=== PATIENT | male | born 1965 | race Caucasian/White ===

== ENCOUNTER → 2022-11-17 10:38 | Outpatient (CLI) | payer BC, SELFPAY ==
--- NOTE | ~2022-11-17 | CT_ITS ---
CT Scan of the Chest without Contrast: Clinical Indication: Lung cancer screening, personal history of nicotine dependence Technique: Contiguous sections were acquired throughout the chest without intravenous contrast. Dose reduction technique was used on this scan by utilizing automated exposure control and iterative recon struction technique. The dose-length product (DLP) was 101.93 mGy-cm. Findings: There is no evidence of any significant mediastinal, hilar or axillary lymphadenopathy. Coronary michael ry calcifications are present. There is no evidence of pleural or pericardial effusion. The lungs are clear. No pulmonary nodules or infiltrates are noted. Images through the upper abdomen reveal no abnormalities. Impression: Lung RADS 1: Negative. 12 month follow-up screening CT advised. Reviewed, dictated and finalized at location . Impression: Lung RADS 1: Negative. 12 month follow-up screening CT advised.
== END ==
PROVIDERS: PCP Nurse Practitioner Family; Visit Provider Nurse Practitioner Family
DX: Z12.2 Encounter for screening for malignant neoplasm of respiratory organs (principal); Z87.891 Personal history of nicotine dependence
CPT/HCPCS: 71271

== ENCOUNTER 2023-09-27 11:22 | Emergency (ER) | payer BC, SELFPAY ==
--- NOTE | ~2023-09-27 | XR_ITS ---
EXAMINATION: XR knee RT 3V DATE: 09/27/2023 11:51 INDICATION: Right knee pain. TECHNIQUE: 3 views of right knee were obtained. COMPARISON: None. FINDINGS: Bone alignment is normal. No fracture. There is mild tricompartmental osteoarthritis. No kn ee joint effusion. IMPRESSION: 1. Mild right knee osteoarthritis. Reviewed, dictated and finalized at location A.
[2023-09-27 11:34] VITALS: BP 154/92; PULSE 104; RESP 16; TEMP 36.4; O2SAT 99
--- NOTE | 2023-09-27 11:40 | ED.LOWEXIN ---
HPI - Extremity Injury (Lower) General Chief Complaint: Extremity Injury, Lower Stated Complaint: Right Knee Pain Time Seen by Provider: 09/27/23 11:40 Source: patient Mode of arrival: ambulatory Limitations: no limitations History of Present Illness HPI Narrative: Sy is a 58-year-old male patient presenting to the clinic today with complaints of right knee pain this been going on for 2-3 months. He denies any injury to the right knee. Rates his pain at 10 and 10 currently. Does have mild swelling when compared to the left knee. Reports that the knee hurts all over. No redness or erythema. No history of gout Related Data Allergies Allergy/AdvReac Type Severity Reaction Status Date / Time No Known Allergies Verified 10/17/09 12:30 Review of Systems Review of Systems: Pertinent positives per HPI. Patient denies any fever, chills, rash, headache, visual changes, dizziness, cough, runny nose, sore throat, shortness of breath, chest pain, palpitations, nausea, vomiting, diarrhea, constipation, abdominal pain, or any urinary issues. [facility] Family History Family History Mother Rheumatoid arthritis Grandparent Rheumatoid arthritis Social History Social History Social History: quit smoking in 2019, 30 years in total about 1ppd Smoking status: Former smoker Comments At the time of my signature, I reviewed and agree with the nursing past medical, surgical, social, and family history. There is no relevant family history pertinent to the patient complaint. Exam Narrative: General: Well-developed, well nourished, in no apparent distress Head: Normocephalic, atraumatic. Cardio: Regular rate and rhythm, s1 and s2 normal, no murmur appreciated. Resp: Clear to auscultation bilaterally, no rhonchi, rales, wheezing or rubs. Musculoskeletal: No deformity, tender to palpation over the entire knee joint but mostly over the medial knee joint, pain with full flexion and full extension of the knee, no crepitus palpable, grossly normal range of motion, muscle strength strong and equal, peripheral pulse strong, no edema, no cyanosis, normal gait and station Course Course Emergency Course: Portions of this record may have been created with voice recognition software. Level of Care: Express Care Visit Vital Signs Vital signs: Vital Signs Temperature 36.4 C L 09/27/23 11:34 Pulse Rate 104 H 09/27/23 11:34 Respiratory Rate 16 09/27/23 11:34 Blood Pressure 154/92 H 09/27/23 11:34 Pulse Oximetry 99 09/27/23 11:34 Oxygen Delivery Room Air 09/27/23 11:34 Temperature 36.4 C L 09/27/23 11:34 Pulse Rate 104 H 09/27/23 11:34 Respiratory Rate 16 09/27/23 11:34 Blood Pressure 154/92 H 09/27/23 11:34 Pulse Oximetry 99 09/27/23 11:34 Oxygen Delivery Room Air 09/27/23 11:34 Vital signs reviewed MDM - Extremity Injury (Lower) MDM Narrative Medical decision making narrative: At the time of visit patient is resting comfortably on the exam table. Patient appears to be nontoxic. Diagnostics: Right knee x-ray was performed and shows mild osteoarthritis. Plan: I suspect patient has osteoarthritis of the right knee. Prescription for Medrol Dosepak was sent to the pharmacy. Supportive measures were discussed with the patient and they voiced understanding discharge instructions and agrees to treatment plan. Return precautions reviewed Differential Diagnosis Differential diagnosis: Likely acute internal derangement of knee and other (Osteoarthritis, rheumatoid arthritis, gout) Imaging Data Radiologist's impression: ITS Impressions Knee X-Ray 09/27/23 12:26 IMPRESSION: 1. Mild right knee osteoarthritis. Discharge Plan Discharge Clinical Impression: Knee osteoarthritis Qualifiers: Osteoarthritis type: primary Laterality: right Qualified Code(s
== END 2023-09-27 12:40 | disposition home or self-care (01) ==
PROVIDERS: Emergency Provider Nurse Practitioner Family; PCP Nurse Practitioner Family
DX: M17.11 Unilateral primary osteoarthritis, right knee (principal); Z87.891 Personal history of nicotine dependence
CPT/HCPCS: 73562; 99213; G0463

== ENCOUNTER 2025-04-29 16:02 | Emergency (ER) | payer BC, SELFPAY ==
--- NOTE | ~2025-04-29 | US_ITS ---
US venous doppler LE LT INDICATION: Left lower extremity pain and swelling. COMPARISON: None. TECHNIQUE: The deep veins of the left lower extremity were evaluated with Duplex Doppler, color Doppler, and high-resolution B-mode sonography. Evaluated veins include the common femoral, femoral, and popliteal veins. The calf veins were also evaluated. Compression and augmentation maneuvers were performed. FINDINGS: The deep veins of the left lower extremity were compressible and demonstrated spontaneous phasic waveforms with an appropriate response to augmentation maneuvers. The visualized calf veins were patent. Complex area in the posterior knee measures 2.7 x 5.7 x 1.7 cm. IMPRESSION: There was no sonographic evidence of deep vein thrombosis in the left lower extremity. Complex area in the posterior knee measures 2.7 x 5.7 x 1.7 cm. Reviewed, dictated and finalized at location S. [facility] BOTANY INSTRUCTOR IMPRESSION: There was no sonographic evidence of deep vein thrombosis in the left lower ext remity. Complex area in the posterior knee measures 2.7 x 5.7 x 1.7 cm.
--- NOTE | ~2025-04-29 | XR_ITS ---
XR knee LT min 4V INDICATION: left knee pain . COMPARISON: None. FINDINGS: Frontal, lateral and oblique views of the left knee demonstrate no acute fracture or dislocation. There is no joint effusion. Degenerative changes with joint space narrowing and marginal osteophytes. IMPRESSION: Radiographic examination of the left knee demonstrates no acute fracture or dislocation. Reviewed, dictated and finalized at location S. [employer] IMPRESSION: Radiographic examination of the left knee demonstrates no acute fracture or dis location.
--- OUTSIDE RECORDS SUMMARY | 2025-04-29 16:04 | XMS_ITS | Clinical Summary ---
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 Gender Identity Not on file Sexual Orientation Not on file Last Filed Vital Signs Vital Sign Reading Time Taken Comments Blood Pressure - - Pulse - - Temperature - - Respiratory Rate - - Oxygen Saturation - - Inhaled Oxygen Concentration - - Weight 88.5 kg (195 lb) 12/31/2024 3:17 PM CDT Height 182.9 cm (6') 12/31/2024 3:17 PM CDT Body Mass Index 26.45 12/31/2024 3:17 PM CDT Plan of Treatment Health Maintenance Due Date Last Done Comments Colon Cancer Screening-Colonoscopy 1967 Depression Screening 1967 Hepatitis C Screening 1967 Prostate Cancer Screening-PSA 1967 DTaP/Tdap/Td Vaccine (1 - Tdap) 1978 Hepatitis B Screening 1985 Regular Well Visit/Exam 18-64 1985 Zoster Vaccine (1 of 2) 2017 Influenza Vaccine (#1) 2025 Pneumococcal vaccine <65 Aged Out No longer eligible based on patient's age to complete this topic Insurance BLUE ACCESS OOS Care Teams House Parent Relationship Specialty Start Date End Date Eloy Sewell MD PCP - General Family Medicine 11/11/20
[2025-04-29 16:10] VITALS: BP 138/80; PULSE 94; RESP 16; TEMP 36.4; O2SAT 96
--- NOTE | 2025-04-29 17:41 | ED_ITS ---
HPI - Recheck/Abnormal Lab/Rx General Chief Complaint: Recheck/Abnormal Lab/Rx Stated Complaint: r/o DVT Time Seen by Provider: 04/29/25 17:29 Source: patient Mode of arrival: ambulatory Limitations: no limitations History of Present Illness HPI narrative: This is a 60-year-old male that presents to the emergency department for left knee pain. Ongoing over the last couple of months. Reports the pain radiates to the back of his knee now and notes some swelling in the area. Concerned for DVT. Related Data Allergies Allergy/AdvReac Type Severity Reaction Status Date / Time No Known Allergies Allergy Verified 04/29/25 16:04 Review of Systems Review of Systems: All systems reviewed & are unremarkable except as noted in HPI and below PMFSH Family History Family History Mother Rheumatoid arthritis Grandparent Rheumatoid arthritis Social History Social History Social History: quit smoking in 2019, 30 years in total about 1ppd Exam Narrative: GENERAL: Well-appearing, well-nourished, and in no acute distress. HEAD: Normocephalic, atraumatic. EYES: EOMI. CHEST: No respiratory distress. HEART: Regular rate EXTREMITIES: Normal range of motion. No edema or erythema. Normal DP pulse SKIN: Warm, dry, no rash. NEURO: No focal deficits. Alert and oriented x3. PSYCH: Normal mood and affect Course Vital Signs Vital signs: Vital Signs Temperature 97.6 F 04/29/25 16:10 Pulse Rate 94 04/29/25 16:10 Respiratory Rate 16 04/29/25 16:10 Blood Pressure 138/80 04/29/25 16:10 Pulse Oximetry 96 04/29/25 16:10 Oxygen Delivery Room Air 04/29/25 16:10 Temperature 98 F 04/29/25 19:08 Pulse Rate 85 04/29/25 19:08 Respiratory Rate 18 04/29/25 19:08 Blood Pressure 158/81 H 04/29/25 19:08 Pulse Oximetry 97 04/29/25 19:08 Oxygen Delivery Room Air 04/29/25 16:10 MDM - Recheck/Abnormal Lab/Rx MDM Narrative Medical decision making narrative: Patient presents to the emergency department for left knee pain. Ongoing over the last several months. Concern for DVT. He is afebrile and nontoxic appearing. He is neurovascularly intact. No erythema of the knee. Left knee x-ray without acute osseous abnormalities. Showing degenerative changes. Ultrasound venous Doppler without evidence of DVT. Showing likely a Galvan's cyst. Patient was updated on his workup. Instructed to have follow-up with his orthopedics doctor Differential Diagnosis Differential diagnosis: Likely other (DVT, galvan's cyst) Imaging Data Radiologist's impression: ITS Impressions Knee X-Ray 04/29/25 18:13 IMPRESSION: Radiographic examination of the left knee demonstrates no acute fracture or dislocation. Venous Doppler Study 04/29/25 18:56 IMPRESSION: There was no sonographic evidence of deep vein thrombosis in the left lower extremity. Complex area in the posterior knee measures 2.7 x 5.7 x 1.7 cm. Critical Care Time Critical Care Time Critical Care Time: No Discharge Plan Discharge Clinical Impression: Galvan cyst Qualifiers: Laterality: left Qualified Code(s): M71.22 - Synovial cyst of popliteal space [Galvan], left knee Patient Disposition: Home Condition: Stable Instructions: Galvan Cyst (ED) Additional Instructions: Return to the ER if you experience fever, redness and swelling of your extremity, numbness or any other symptoms that are concerning to you Wear GUERDA wrap. Ice and elevate extremity. Tylenol or ibuprofen as needed for pain Follow up with your orthopedics doctor for further care. Patient Language: Estonian Prescriptions: No Action methylprednisolone [Medrol (Juan R)] 4 mg tablets,dose pack See Rx Instructions PO .COMPLEX Qty: 21 0RF Rx Instructions: orally per package directions Follow-up/Referrals: Sole Howe APRN [Primary Care Provider, Family Practice]
--- OUTSIDE RECORDS SUMMARY | 2025-04-29 18:49 | XMS_ITS | Clinical Summary ---
Author Organization 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
[2025-04-29 19:08] VITALS: BP 158/81; PULSE 85; RESP 18; TEMP 36.6; O2SAT 97
[2025-04-29 20:06] VITALS: BP 152/80; PULSE 86; RESP 20; TEMP 36.7; O2SAT 100
== END 2025-04-29 20:07 | disposition home or self-care (01) ==
PROVIDERS: Emergency Provider Physician Assistant; PCP Nurse Practitioner Family
DX: M71.22 Synovial cyst of popliteal space [Baker], left knee (principal)
CPT/HCPCS: 73564; 93971; 99284